=== PATIENT | female | born 1990 | race African-American/Black ===

== ENCOUNTER 2018-01-21 10:29 | Emergency (ER) | payer OTHER ==
[~2018-01-21] VITALS: Ht 154.9 cm; Wt 68.0 kg
--- NOTE | ~2018-01-21 | EKG ---
[address] [address] ELECTROCARDIOGRAM REPORT Name: PRIMITIVO ROSENTHAL RAGHU MOYE Room #: DEP [facility]#: [id number] Admission: 01/21/18 Attend Phys: Discharge: 01/21/18 Date of : [birth year] Report #: [id number] THIS REPORT FOR: //name// 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
[~2018-01-21 10:29] MED LIST: ALBUTEROL INH INH; FLONASE16 GM NASAL; IBUPROFEN 600600 M1 PO; LORTABELXR PO; MACROBID 100 M100 M1 PO; NORCO 5-325 TA1 EACH PO; PROMETHAZINE-C120 ML PO; PROVENTIL; TUMS CHEWA500 MG/11 PO; ZPAK PO
[2018-01-21 10:56] LABS: ABSOLUTE NEUTROPHILS 6.9 thou/uL (1.4-8.2); BASOPHILS 0.4 % (0.0-2.0); EOSINOPHILS 0.1 % (0.0-3.0); HEMATOCRIT 39.8 % (37.0-47.0); HEMOGLOBIN 14.1 gm/dL (12.0-15.0); LYMPHOCYTES 14.8 % (24.0-44.0); MCH 28.3 pg (26.0-34.0); MCHC 35.5 g/dL (28.0-37.0); MCV 79.7 fL (80.0-100.0); MONOCYTES 11.4 % (1.0-8.0); PLATELET COUNT 197 thou/uL (150-400); POLYS 73.3 % (36.0-66.0); WBC 9.4 thou/uL (4.0-11.0)
[2018-01-21 11:06] LABS: CALCIUM 9.1 mg/dL (8.5-10.1); CREATININE 0.9 mg/dL (0.6-1.0); POTASSIUM 3.9 mmol/L (3.5-5.1)
[2018-01-21 11:40] LABS: URINE BILIRUBIN NEGATIVE (Negative); URINE BLOOD NEGATIVE (Negative); URINE CLARITY CLEAR; URINE COLOR YELLOW; URINE GLUCOSE-RANDOM* NEGATIVE (Negative); URINE KETONES 3+ (Negative); URINE LEUKOCYTES-REFLEX NEGATIVE (Negative); URINE NITRITE-REFLEX NEGATIVE (Negative); URINE PROTEIN (DIPSTICK) NEGATIVE (Negative); URINE UROBILINOGEN 0.2 E.U./dl (0.2-1.0)
[2018-01-21 11:45] LABS: URINE REDUCING SUBSTANCE NEGATIVE
[2018-01-21 11:46] LABS: AMP/METHAMP Negative (Negative); BARBITURATES Negative (Negative); BENZODIAZEPINES Negative (Negative); COCAINE Negative (Negative); METHADONE Negative (Negative); OPIATES POSITIVE (Negative); PCP Negative (Negative)
[2018-01-21 14:25] VITALS: BP 115/57
== END 2018-01-21 14:27 | disposition home or self-care (01) ==
LOC: ER 10:29
PROVIDERS: Physician Assistant
DX: J06.9 Acute upper respiratory infection, unspecified (principal); B34.9 Viral infection, unspecified; R00.0 Tachycardia, unspecified; R20.2 Paresthesia of skin; M54.5 Low back pain; R42 Dizziness and giddiness; J45.909 Unspecified asthma, uncomplicated; K21.9 Gastro-esophageal reflux disease without esophagitis; F41.9 Anxiety disorder, unspecified; Z91.048 Other nonmedicinal substance allergy status; Z91.040 Latex allergy status

== ENCOUNTER 2018-05-23 14:16 | Emergency (ER) | payer OTHER ==
[~2018-05-23] VITALS: Ht 154.9 cm; Wt 65.8 kg
[2018-05-23 14:17] VITALS: BP 119/82
[2018-05-23] MEDS ORDERED: ACCUNEB SO1.25 MG/1 INH (14:20)
[2018-05-23] MEDS ORDERED: FLAGYL375 MG PO (14:21)
[2018-05-23] MEDS ORDERED: VISTARIL 25 MG25 M1 PO (15:00)
--- NOTE | 2018-05-23 15:19 | EKG ---
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
== END 2018-05-23 15:19 | disposition home or self-care (01) ==
LOC: ER 14:16
DX: F41.9 Anxiety disorder, unspecified (principal); J45.909 Unspecified asthma, uncomplicated; K21.9 Gastro-esophageal reflux disease without esophagitis; Z91.040 Latex allergy status; Z91.048 Other nonmedicinal substance allergy status

== ENCOUNTER 2019-07-09 13:07 | Emergency (ER) | payer OTHER ==
[~2019-07-09] VITALS: Ht 157.5 cm; Wt 59.0 kg
[~2019-07-09 13:07] MED LIST changes: +ACCUNEB SO1.25 MG/1 INH; +FLAGYL375 MG PO; +VISTARIL 25 MG25 M1 PO
[2019-07-09] MEDS ORDERED: COLACE100 MG PO (13:22)
[2019-07-09] MEDS ORDERED: IRON325 PO (13:22)
[2019-07-09 13:45] LABS: URINE BILIRUBIN NEGATIVE (Negative); URINE BLOOD NEGATIVE (Negative); URINE CLARITY CLEAR; URINE COLOR YELLOW; URINE GLUCOSE-RANDOM* NEGATIVE (Negative); URINE KETONES NEGATIVE (Negative); URINE LEUKOCYTES-REFLEX NEGATIVE (Negative); URINE NITRITE-REFLEX NEGATIVE (Negative); URINE PROTEIN (DIPSTICK) NEGATIVE (Negative); URINE SPECIFIC GRAVITY >= 1.030 (1.005-1.035); URINE UROBILINOGEN 0.2 E.U./dl (0.2-1.0)
[2019-07-09 13:52] LABS: ABSOLUTE NEUTROPHILS 1.5 thou/uL (1.4-8.2); BASOPHILS 0.6 % (0.0-2.0); EOSINOPHILS 2.6 % (0.0-3.0); HEMATOCRIT 34.8 % (37.0-47.0); HEMOGLOBIN 11.6 gm/dL (12.0-15.0); LYMPHOCYTES 56.8 % (24.0-44.0); MCH 23.4 pg (26.0-34.0); MCHC 33.5 g/dL (28.0-37.0); MCV 70.1 fL (80.0-100.0); MONOCYTES 5.2 % (1.0-8.0); PLATELET COUNT 231 thou/uL (150-400); POLYS 34.8 % (36.0-66.0); RBC 4.96 mil/uL (4.20-5.00); WBC 4.2 thou/uL (4.0-11.0)
[2019-07-09 13:54] LABS: CALCIUM 9.6 mg/dL (8.5-10.1); CREATININE 0.9 mg/dL (0.6-1.0); POTASSIUM 3.7 mmol/L (3.5-5.1)
[2019-07-09 13:55] LABS: MAGNESIUM 1.8 mg/dL (1.8-2.4)
[2019-07-09 16:32] VITALS: BP 114/81
--- NOTE | 2019-07-10 08:51 | EKG ---
[facility] [place] [address] ELECTROCARDIOGRAM REPORT Name: PRIMITIVO ROSENTHAL Room #: DEP [facility]#: [id number] Admission: 07/09/19 Attend Phys: Discharge: 07/09/19 Date of : [birth year] Report #: [id number] THIS REPORT FOR: cc: RADHA Ribera family physician/PCP RADHA - Mounika family physician/PCP Vik Harmon MD [facility] THIS REPORT FOR: //name// [facility] ED Test Date: 2019-07-09 Test Time: 13:52:42 Pat Name: PRIMITIVO ROSENTHAL Department: Room: Gender: F Stunner Animal: alina : 1990 Requested By: Senthil David Order Number: [id number] MD: Vik Harmon Measurements Intervals [place] Rate: 82 P: 62 [place]: 171 QRS: 38 QRSD: 87 T: 37 QT: 339 QTc: 396 Interpretive Statements Sinus rhythm Normal tracing Compared to ECG 05/23/2018 14:52:56 No significant changes Electronically Signed On 07-10-2019 8:49:48 CDT by Vik Harmon [email or web address] <ELECTRONICALLY SIGNED> By: Vik Harmon MD, FACC 07/10/19 0849 1352 1352 Vik Harmon MD, [facility] /EPI
== END 2019-07-09 16:33 ==
LOC: ER 13:07
PROVIDERS: Emergency Medicine
DX: N89.8 Other specified noninflammatory disorders of vagina (principal); R51 Headache; R42 Dizziness and giddiness; K21.9 Gastro-esophageal reflux disease without esophagitis; J45.909 Unspecified asthma, uncomplicated; F41.9 Anxiety disorder, unspecified

== ENCOUNTER 2020-05-06 01:56 | Emergency (ER) | payer OTHER ==
[~2020-05-06] VITALS: Ht 157.5 cm; Wt 66.2 kg
--- NOTE | ~2020-05-06 | EMS ---
[address] [address] EMS Patient Care Report Name: PRIMITIVO ROSENTHAL Room #: DEP [facility]#: [id number] Admission: 05/06/20 Attend Phys: Discharge: 05/06/20 Date of : [birth year] Report #: [id number] THIS REPORT FOR: //name// Report Transmitted: 05/06/2020 03:39 EMS Care Summary [facility] MED-ACT Incident [id number] @ 05/06/2020 01:11 Incident Location [address] [address] Patient PRIMITIVO ROSENTHAL Female, 29 Years 1990 Patient Address [address] [place] [address] Patient History Anxiety Disorder (Panic Attacks), Patient Allergies No known allergies, Patient Medications None Reported, Chief Complaint Panic attack Disposition Transported No Lights/[place] Reason Breathing Problem Transported To [facility] Narrative We arrived to find the pt, 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 There are many co-workers around her. They stated that the pt is having a panic attack. Pt presents with rapid breathing and obvious cramping in her hands. [address] [address] EMS Patient Care Report Name: PRIMITIVO ROSENTHAL Room #: DEP [facility]#: [id number] Admission: 05/06/20 Attend Phys: Discharge: 05/06/20 Date of : [birth year] Report #: [id number] The pt will not speak when asked questions. The pt friend is on the phone with the pt mother and states that the pt has a hx of panic attacks. Pt has medication for her panic attacks, but she is out. She had a panic attack a recently as two weeks ago. Pt denied any specific trigger to the episode tonight. Pt denied any other complaints. Pt was assisted to the stretcher and secured for transport. Pt was asked multiple times to put a mask on and multiple attempts were made to place a mask on the pt, but she would not comply. The pt was continually coached to slow her breathing down throughout transport. Pt care was transferred to [facility] staff without incident. 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,BP: 118/ M,PULSE: 140,RR: 40 R,SPO2: 98 Ox,ETCO2: ,BG: ,PAIN: 0,GCS: 15, 01:09,Call Received 01:09,Psap Call 01:11,Dispatched 01:13,En Route 01:19,On Scene 01:23,At Patient 01:24,Surgical Mask on Patient, 01:43,Depart Scene 01:45,BP: 134/80 M,PULSE: 130,RR: R,SPO2: 97 Ox,ETCO2: ,BG: ,PAIN: ,GCS: , 01:51,At Destination 02:27,Call Closed Disclaimer v1.1 Copyright 2020 [employer] This EMS Care Summary contains data elements from the applicable legal record [facility] [address] [place] [address] EMS Patient Care Report Name: PRIMITIVO ROSENTHAL Room #: DEP [facility]#: [id number] Admission: 05/06/20 Attend Phys: Discharge: 05/06/20 Date of : [birth year] Report #: [id number] (which may be displayed differently). It is designed to provide pertinent information for the following purposes: continuity of care, clinical quality, and state data reporting. The complete legal record is available to ED staff and administrators of the receiving hospital in [employer]s Patient Tracker. All data is provided "as is."
[~2020-05-06 01:56] MED LIST changes: +COLACE100 MG PO; +IRON325 PO
[2020-05-06] MEDS ORDERED: ATIVAN1 M1 PO (02:45)
[2020-05-06 02:55] VITALS: BP 119/78
== END 2020-05-06 02:57 | disposition home or self-care (01) ==
LOC: ER 01:56
DX: F41.0 Panic disorder [episodic paroxysmal anxiety] (principal); R20.0 Anesthesia of skin; R20.2 Paresthesia of skin; J45.909 Unspecified asthma, uncomplicated; K21.9 Gastro-esophageal reflux disease without esophagitis; Z79.899 Other long term (current) drug therapy